=== PATIENT | male | born 1955 | race Caucasian/White ===

== ENCOUNTER 2018-01-29 15:24 | Outpatient (CLI) | payer BC ==
--- NOTE | 2018-01-29 16:24 | RAD ---
RIGHT KNEE THREE VIEWS: 01/29/18 HISTORY: Acute pain in the right knee. FINDINGS/IMPRESSION: Degenerative changes are present. No acute fracture or dislocation or bony destruction identified. POS: [facility]
== END 2018-01-29 15:25 | disposition home or self-care (01) ==
LOC: SCSRAD 15:24
PROVIDERS: ATTEND Family Medicine
DX: M25.561 Pain in right knee (principal); M17.11 Unilateral primary osteoarthritis, right knee

== ENCOUNTER 2021-09-24 09:52 | Outpatient (CLI) | payer BC ==
[2021-09-24 11:11] LABS: Bilirubin Neg (Negative); Blood, Urine Negative (Negative); Clarity Clear (Clear); Glucose, Urine (Dipstick) Normal (Negative); Ketone, Urine Negative (Negative); Leukocyte Negative (Negative); Nitrite Negative (Negative); Protein, Urine (Dipstick) Negative (Neg-Trace); Specific Gravity, Urine 1.025 (1.002-1.036); Urobilinogen Normal mg/dL (Less than 2)
[2021-09-24 11:29] LABS: Hemoglobin 17.3 g/dL (13.5-17.5); Mean Corpuscular HGB CONC 34.3 g/dL (32.0-36.0); Mean Corpuscular Hemoglobin 29.2 pg (27.0-33.0); Mean Corpuscular Volume 85.2 fl (81.2-95.1); Mean Platelet Volume 10.9 fl (7.4-10.4); Platelet Count 130 10x3/uL (150-450); RBC Distribution Width 13.8 % (11.5-14.5); Red Blood Cell (RBC) Count 5.93 10x6/uL (4.32-5.72); White Blood Cell (WBC) Count 8.5 10x3/uL (3.5-10.5)
[2021-09-24 11:37] LABS: PTT 26.3 sec (22.0-33.0); Prothrombin Time 10.9 sec (9.5-12.1)
[2021-09-24 11:44] LABS: Bacteria/HPF None Seen HPF (None Seen); RBC/HPF None Seen HPF (0-3); Squamous Epithelial None Seen HPF (0-3); WBC/HPF None Seen HPF (0-3)
[2021-09-24 12:15] LABS: Anion Gap 15 mmol/L (10-20); BUN (Urea Nitrogen) 22 mg/dL (8.4-25.7); Calc. Creatinine Clearance 0 mL/min (70-130); Calcium 9.3 mg/dL (7.8-10.44); Carbon Dioxide 26 mmol/L (23-31); Chloride 106 mmol/L (98-107); Glucose 87 mg/dL (80-115); Potassium 4.5 mmol/L (3.5-5.1); Sodium 142 mmol/L (136-145)
[2021-09-25 00:45] LABS: SARS-CoV-2 PCR by NAA Not Detected (NotDetected)
== END 2021-09-24 09:53 | disposition home or self-care (01) ==
LOC: LABBT 09:52
PROVIDERS: ATTEND Urology
DX: Z01.818 Encounter for other preprocedural examination (principal); N40.1 Benign prostatic hyperplasia with lower urinary tract symptoms; E29.1 Testicular hypofunction; N52.9 Male erectile dysfunction, unspecified; E66.01 Morbid (severe) obesity due to excess calories; Z20.822 Contact with and (suspected) exposure to COVID-19
CPT/HCPCS: 80048; 81001; 85027; 85610; 85730; 87086; 93005; 93010; U0003; U0005

== ENCOUNTER 2021-09-27 05:51 | Day surgery (SDC) | payer BC ==
[2021-09-24 11:22] VITALS: BMI 39.3
[2021-09-27] MEDS ORDERED: Fentanyl 100 MCG/2 ML VIAL ONE (07:22)
[2021-09-27] MEDS ORDERED: Ketamine 50 MG/ML (10ML VIAL) ONE (07:22)
[2021-09-27] MEDS ORDERED: PROPOFOL 200 MG/20 ML VIAL ONE (07:23)
[2021-09-27] MEDS ORDERED: Glycopyrrolate 0.2 MG/ML 5 ML SYRINGE ONE (07:23)
[2021-09-27] MEDS ORDERED: Lidocaine 1% PF 5 ML VIAL ONE (07:23)
[2021-09-27] MEDS ORDERED: Levofloxacin 500 mg/D5W 100 ml Premix Bag ONE (07:26)
[2021-09-27] MEDS ORDERED: B & O ONE (07:49)
[2021-09-27] MEDS ORDERED: Oxybutynin 5 MG TAB ONE (08:17)
[2021-09-27] MEDS ORDERED: Phenazopyridine HCl 100 MG TAB ONE (08:17)
== END 2021-09-27 10:55 | disposition home or self-care (01) ==
LOC: SDC 05:51
PROVIDERS: ATTEND Urology
PROC: 0T7D8DZ Dilation of Urethra with Intraluminal Device, Via Natural or Artificial Opening Endoscopic (ICD-10-PCS; principal; 2021-09-27)
DX: N40.1 Benign prostatic hyperplasia with lower urinary tract symptoms (principal); R39.11 Hesitancy of micturition; R39.12 Poor urinary stream; I10 Essential (primary) hypertension; N52.9 Male erectile dysfunction, unspecified; E66.01 Morbid (severe) obesity due to excess calories; Z68.39 Body mass index [BMI] 39.0-39.9, adult; Z79.899 Other long term (current) drug therapy
CPT/HCPCS: J1956; J2704; J3010; L8699

== ENCOUNTER 2022-01-14 17:30 | Outpatient (CLI) | payer BC | END 2022-01-14 17:31 | disposition home or self-care (01) | LOC: SLEEPLAB 17:30 | PROVIDERS: ATTEND Family Medicine | DX: G47.33 Obstructive sleep apnea (adult) (pediatric) (principal); R06.83 Snoring; I10 Essential (primary) hypertension; G47.00 Insomnia, unspecified; R09.02 Hypoxemia | CPT/HCPCS: 95800 ==